=== PATIENT | male | born 1995 | race Native Hawaiian/Other Pacific Islander ===

== ENCOUNTER 2017-11-02 15:23 | Outpatient (CLI) | payer OTHER | END 2017-11-02 15:24 | disposition home or self-care (01) | LOC: SC 15:23 | PROVIDERS: ATTEND Internal Medicine Pulmonary Disease | DX: G47.30 Sleep apnea, unspecified (principal); G47.10 Hypersomnia, unspecified; G47.8 Other sleep disorders; R51 Headache; E66.9 Obesity, unspecified; Z68.31 Body mass index [BMI] 31.0-31.9, adult; R06.83 Snoring | CPT/HCPCS: 99203; 99212 ==

== ENCOUNTER 2017-12-18 20:18 | Outpatient (CLI) | payer OTHER | END 2017-12-18 20:19 | disposition home or self-care (01) | LOC: SC 20:18 | PROVIDERS: ATTEND Internal Medicine Pulmonary Disease | DX: G47.33 Obstructive sleep apnea (adult) (pediatric) (principal); G47.61 Periodic limb movement disorder | CPT/HCPCS: 95811 ==

== ENCOUNTER 2017-12-30 11:12 | Outpatient (CLI) | payer OTHER | END 2017-12-30 11:13 | disposition home or self-care (01) | LOC: SC 11:12 | PROVIDERS: ATTEND Nurse Practitioner Family | DX: G47.33 Obstructive sleep apnea (adult) (pediatric) (principal); G47.61 Periodic limb movement disorder | CPT/HCPCS: 99212; 99214 ==